=== PATIENT | female | born 1955 | race Caucasian/White ===

== ENCOUNTER 2016-08-19 19:51 | Emergency (ER) | payer MEDICARE, BC ==
[2016-08-19] MEDS ORDERED: Morphine INJ* 4 MG/ML 1 ML SYRINGE IM ONE ×2 (21:11→23:42)
--- NOTE | 2016-08-19 21:52 | RAD ---
Indication: Fall, neck injury. CT of the cervical spine was obtained in the axial plane. Sagittal and coronal reconstructed images were obtained. Skull base demonstrates no fracture. The C1 ring is intact. No fractures identified. At C2-C3 there is no disc protrusion. No central foraminal stenosis is noted. There is laminectomy of the C3 vertebra. Minimal degenerative disc disease at C3-C4 is noted with spondylytic ridge and broad-based protrusion. Anterior fusion of C4-C6 is noted with anterior plate and screws. Spondylitic ridge is noted. Left uncovertebral hypertrophy narrows the left foramen. At C6-C7 and C7-T1 no fracture is identified. No central foraminal stenosis is noted. IMPRESSION: NO FRACTURE IS NOTED. DEGENERATIVE DISC DISEASE AT C3-C4 WITH LAMINECTOMY OF C3. FUSION OF C4-C6 WITH ANTERIOR PLATE AND SCREWS..
--- NOTE | 2016-08-19 22:06 | RAD ---
Indication: Fall, left hip pain. 2 views of left hip and an AP view the pelvis demonstrates no fracture. No other bone or joint abnormality is identified. IMPRESSION: No fracture of the left hip is noted.
[2016-08-20 00:24] VITALS: BP 140/79
--- NOTE | 2016-08-20 10:21 | ED ---
Rebekah Bernal Rebecca, scribed for Dara Mcclure MD on 08/19/16 at 2045 . Complex/Multi-Sys Presentation - HPI Summary HPI Summary: Pt is a 61 y/o F accompanied by her daughter who presents to ED c/o body aching. Reports pain in the L hip with posterior radiation and neck pain. Pain began 2 days ago and has been constant since onset, currently severe, ranked 10/ 10. Sx aggravated by movement and sitting, alleviated by nothing. Additionally c /o generalized weakness and decreased appetite. Reports a mechanical fall 2 weeks ago after which she was evaluated by [facility], having her R ankle examined by XR which revealed no fracture. PMHx lupus and chronic pain for which she takes oxycodone (5 mg every 8 hours) and morphine (20 mg BID). Last took morphine this morning and oxycodone this afternoon. Typically uses a walker which she can still use, though she reports some difficulty walking recently. Daughter confirms she can be her ride home. - History Of Current Complaint Chief Complaint: EDGeneral Time Seen by Provider: 08/19/16 20:30 Hx Obtained From: Patient, Family/[employer] - daughter Onset/Duration: Lasting Days - 2 days, Still Present Timing: Constant Severity Currently: Severe - 10/10 Severity Initially: Moderate Location: Pain At: - Neck and L hip, Radiates To: - L Hip pain and posterior radiation Character: Dull Aggravating Factor(s): Movement, sitting Alleviating Factor(s): Nothing Associated Signs And Symptoms: Positive: Weakness - Generalized weakness, Decreased Oral Intake - Decreased appetite - Allergies/Home Medications Allergies/Adverse Reactions: Allergies Allergy/AdvReac Type Severity Reaction Status Date / Time Bee Venom Allergy Severe Anaphylatic Verified 12/09/14 08:54 Shock PMH/Surg Hx/FS Hx/Imm Hx Previously Healthy: No Endocrine/Hematology History: Reports: Hx Systemic Lupus Erythematosus, Hx Anemia Denies: Hx Diabetes Cardiovascular History: Reports: Hx Coronary Artery Disease - STENTS X3 2012, Hx Hypertension Denies: Hx Congestive Heart Failure, Hx Pacemaker/ICD, Other Cardiovascular Problems/Disorders Respiratory History: Reports: Hx Pneumonia Denies: Other Respiratory Problems/Disorders GI History: Reports: Hx Gastroesophageal Reflux Disease History: Denies: Hx Renal Disease Musculoskeletal History: Reports: Hx Arthritis - lupus, Hx Osteoporosis, Other Musculoskeletal History - generalized weakness Sensory History: Reports: Hx Contacts or Glasses Denies: Hx Hearing Aid Opthamlomology History: Reports: Hx Contacts or Glasses Neurological History: Reports: Hx Headaches, Other Neuro Impairments/Disorders - SYSTEMIC LUPUS Psychiatric History: Reports: Hx Anxiety, Hx Depression Denies: Hx Panic Disorder - Surgical History Surgery Procedure, Year, and Place: 3 cardiac stents 10/05/11 @ [facility] [place] { PROMUS ELEMENT PLUS- DRUG [employer] -[email or web address] MRI CONDITIONAL 5 UP TO 3T}; tonsillectomy 1963;c section 83;neck spinal fusion 09/18/08;colon polyp removal;polyp in throat removed-pt unsure of datetubal ligation 1996 Hx Anesthesia Reactions: No Infectious Disease History: No Infectious Disease History: Denies: Traveled Outside the [place] in Last 30 Days - Family History Known Family History: Positive: Other - [place] - Social History Alcohol Use: None Substance Use Type: Reports: None Substance Use Comment - Amount & Last Used: She states she no longer smoke Marijuana Hx Tobacco Use: Yes Smoking Status (MU): Current Every Day Smoker Type: Cigarettes Amount Used/How Often: 1/2 PPD Length of Time of Smoking/Using Tobacco: 40 YRS Have You Smoked in the Last Year: Yes Review of Systems Positive: Other - Generalized weakness Cardiovascular: Negative Respiratory: Negative Positive: Other - Decreased appetite Genitourinary: Negative Positive: Arthralgia - L hip pain with posterior radiation and neck pain Negative: Headache, Paresthesia, Numbness Psychological: Normal All Other Systems Reviewed And Are Negative: Yes Physical Exam Triage Information Reviewed: Yes Vital Signs On Initial Exam: Initial Vitals Temp Pulse Resp BP Pulse Ox 97.4 F 71 18 129/75 96 08/19/16 19:51 08/19/16 19:51 08/19/16 19:51 08/19/16 19:51 08/19/16 19:51 Vital Signs Reviewed: Yes Appearance: Positive: Well-Appearing, Well-Nourished, Pain Distress Skin: Positive: Warm, Skin Color Reflects Adequate Perfusion, Other - No rashes ; bruising dorsum right foot at 4th 5th MT Head/Face: Positive: Normal Head/Face Inspection Eyes: Positive: Conjunctiva Clear ENT: Positive: Normal ENT inspection Neck: Positive: Tenderness @ - Right trapezius; NO spinal tenderness in the neck , Other: - Surgical scar Respiratory/Lung Sounds: Positive: Clear to Auscultation, Breath Sounds Present , Other - No repisratory distress Cardiovascular: Positive: RRR, Pulses are Symmetrical in both Upper and Lower Extremities, Other - Brisk capillary refill Abdomen Description: Positive: Nontender, No Organomegaly, Soft. Negative: Distended, Guarding, Splenomegaly Bowel Sounds: Positive: Present Musculoskeletal: Positive: Strength/ROM Intact, Other - Tenderness in the L lateral hip with no rash, able to lift the leg with FROM, distal pulses and sensation intact.. Negative: Edema Left, Edema Right Neurological: Positive: Sensory/Motor Intact, Alert, Oriented to Person Place, Time. Negative: Facial Droop, Focal Deficit @, Slurred Speech Psychiatric: Positive: Normal - [place] Coma Scale Coma Scale Total: 15 Diagnostics - Vital Signs Vital Signs Temp Pulse Resp BP Pulse Ox 08/19/16 20:34 98.7 F 72 14 107/64 98 08/19/16 19:51 97.4 F 71 18 129/75 96 - Laboratory Lab Statement: Any lab studies that have been ordered have been reviewed, and results considered in the medical decision making process. - Radiology L Hip XR Xray Interpretation: No Acute Changes Radiology Interpretation Completed By: Radiologist - CT C-Spine CT CT Interpretation: No Acute Changes - NO FRACTURE IS NOTED. DEGENERATIVE DISC DISEASE AT C3-C4 WITH LAMINECTOMY OF C3. FUSION OF C4-C6 WITH ANTERIOR PLATE AND SCREWS.. CT Interpretation Completed By: Radiologist Re-Evaluation - Re-Evaluation First Eval Re-Evaluation Time: 23:38 Change: Improved Comment: Discussed CT and XR results with the pt in extensive detail. Pt reported improved pain after morphine administration. Discussed the possibility of shingles with the pt and that the pain may be present multiple days prior to onset of rash. Requests another dose of morphine. Confirms she should be able to ambulate out of the ED. Complex Multi-Symp Course/Dx Assessment/Plan: Pt is a 61 y/o F accompanied by her daughter who presents to ED c/o severe neck pain and L hip pain with posterior radiation for the last 2 days. Sx aggravated by movement and sitting, alleviated by nothing. Additionally c/o generalized weakness and decreased appetite. Typically uses a walker. Reports a mechanical fall 2 weeks ago after which she was evaluated by [facility], having her R ankle examined by XR which revealed no fracture. PMHx lupus and chronic pain for which she takes oxycodone (5 mg every 8 hours) and morphine (20 mg BID). Last took morphine this morning and oxycodone this afternoon. C-Spine CT and L Hip XR reveal no acute findings. Pt will be D/C to home with Dx of hip pain. She understands and agrees. - Diagnoses Provider Diagnoses: Hip pain, Cervical strain, acute Discharge - Discharge Plan Condition: Stable Disposition: HOME Patient Education Materials: Hip Pain (ED) Referrals: Cesar Kay MD [Primary Care Provider] - 3 Days Additional Instructions: Dr. Mcclure recommends that you check the hip area daily for possible rash, which might indicate shingles. If the rash develops, seek medical attention immediately. You were given morphine 8mg injectable twice while in the ER. You may continue your oral pain medication as directed. The CT of your cervical spine did not show any fracture or new abnormalities. The hip and pelvis xray did not show any fracture. RETURN TO EMERGENCY DEPARTMENT FOR ANY NEW OR WORSENING SYMPTOMS. The documentation as recorded by the Rebekah zamarripa Rebecca accurately reflects the service I personally performed and the decisions made by , Dara Mcclure MD.
== END 2016-08-20 00:15 | disposition home or self-care (01) ==
LOC: ED 19:51
DX: M25.552 Pain in left hip (principal); S16.1XXA Strain of muscle, fascia and tendon at neck level, initial encounter; W19.XXXA Unspecified fall, initial encounter; Y93.9 Activity, unspecified; Y92.9 Unspecified place or not applicable; R53.1 Weakness; M32.9 Systemic lupus erythematosus, unspecified; I25.10 Atherosclerotic heart disease of native coronary artery without angina pectoris; I10 Essential (primary) hypertension; Z95.5 Presence of coronary angioplasty implant and graft; K21.9 Gastro-esophageal reflux disease without esophagitis; F41.9 Anxiety disorder, unspecified; F32.9 Major depressive disorder, single episode, unspecified; Z91.030 Bee allergy status; F17.210 Nicotine dependence, cigarettes, uncomplicated
CPT/HCPCS: 72125; 96372; 99282; J2270

== ENCOUNTER → 2018-10-19 | Day surgery (SDC) | payer MEDICARE, BC ==
[~2018-10-19] MED LIST: Clopidogrel TAB* 75 MG ONE; Flumazenil* 0.1 MG/ML 5 ML MDV ONE; HYDROmorphone INJ1* 1 MG/ML SYRINGE ONE; Heparin 2 UNITS/ML IVPREMIX* 3,000 UNIT/1,500 ML BAG IV ONE; Heparin(*) 1000 UNIT/ML 10 ML VIAL CATH LAB IV ONE; Iohexol 350 (CONTRAST) 200 ML MDV IV ONE; Lidocaine 1% INJ* 10 MG/ML 30 ML SDV ONE; Midazolam* 1 MG/ML 5 ML VIAL (5 MG) ONE; Naloxone* 0.4 MG/ML 1 ML VIAL ONE; ceFAZolin 1 GM* X ONE DOSE (AddVan) IVPB; fentaNYL* 50 MCG/ML 2 ML VIAL (100 MCG VIAL) ONE; oxyCODONE TAB* 5 MG TAB PO ONE
[2018-10-19 08:19] LABS: Activated Partial Thrombo Time 29.7 seconds (26.0-38.0); INR 0.84 (0.82-1.09)
[2018-10-19 08:29] LABS: Albumin 3.6 g/dL (3.2-5.2); Albumin/Globulin Ratio 1.6 (1-3); BUN/Creatinine Ratio 13.4 (8-20); Calcium 8.9 mg/dL (8.6-10.3); EGFR African American 85.8 (>60); EGFR Non-African American 70.9 (>60); Globulin 2.3 g/dL (2-4); Total Bilirubin 0.3 mg/dL (0.2-1.0); Total Protein 5.9 g/dL (6.4-8.9)
--- NOTE | 2018-10-19 17:39 | PN ---
Progress Note - Progress Note Date of Service: 10/19/18 SOAP: Subjective: Low back pain at baseline. Denies pain in the abdomen/pelvis and legs. No left groin pain. Notably she states her usual left leg pain is gone. Objective: Selected Entries 10/19/18 17:07 Heart Rate 65 Respiratory 21 Rate Blood Pressure 136/70 (mmHg) Blood Pressure 87 Mean O2 Sat by Pulse 88 Oximetry NAD, AAO x 3 Left groin and medial upper thigh is ecchymotic, but soft to touch. Minimally tender to palpation. Dressing with small amount of dry appearing blood. 2+ pulses at left HOUSE MANAGER, pop and DPA Motor function grossly intact in BLE Sensation to light touch intact in BLE No discoloration of either lower leg or foot Assessment: 63 YOF s/p pelvic and BLE arteriography, revascularization and stenting of occluded left common iliac artery, balloon angioplasty of left HELENA and EIA followed by attempted percutaneous closure of left HOUSE MANAGER with Mynx closure device. Mynx closure device deployed incompletely so pressure held at arteriotomy x 40 minutes and groin managed with 5+ hours bedrest. Plan: 1. Plavix 150 mg PO now loading dose to be followed by Plavix 75 mg PO daily until IR clinic visit. 2. Continue baby aspirin 81 mg PO daily for life. 3. IR clinic nurse will call 10/22/18 and routine Interventional Radiology office visit and TRACIE will be in ~1 month. 4. Patient further encouraged to quit smoking.
[2018-10-19 17:44] VITALS: BP 147/64
== END | disposition home or self-care (01) ==
LOC: CHICATH 06:51
PROVIDERS: ATTEND Radiology Diagnostic Radiology
DX: I70.223 Atherosclerosis of native arteries of extremities with rest pain, bilateral legs (principal); I70.213 Atherosclerosis of native arteries of extremities with intermittent claudication, bilateral legs; I25.10 Atherosclerotic heart disease of native coronary artery without angina pectoris; M32.9 Systemic lupus erythematosus, unspecified; G62.9 Polyneuropathy, unspecified; F17.210 Nicotine dependence, cigarettes, uncomplicated; Z79.899 Other long term (current) drug therapy; M47.12 Other spondylosis with myelopathy, cervical region
CPT/HCPCS: 36415; 37252; 75736; 76937; 80053; 85347; 85610; 85730; 99156; 99157; A9270-GY; C1725; C1753; C1760; C1769; C1874; C1887; J0690; J1170; J1644; J2250; J2310; J3010

== ENCOUNTER 2018-10-23 06:33 | Emergency (ER) | payer MEDICARE, BC ==
--- OUTSIDE RECORDS SUMMARY | 2018-10-23 06:43 | XMS REPORT | Continuity of Care Document ---
:1955 External Reference #:[id number] Author Name Zi Greco DO, MPH Address [facility], [address] [place] [address] Care Team Providers Name Role Phone Jefe Carter M.D. - Medical Care Team Information Shirt Operator [phone] Oncology Cesar Kya M.D. - Family Medicine Care Team Information Shirt Operator [phone] Problems Description No Information Available Social History Type Date Description Comments Sex Unknown Cigarette Use Current Cigarette Smoker 1/2 Pack Daily ETOH Use Rarely consumes alcohol Tobacco Use Start: Unknown Patient is a current smoker, smokes every day Smoking Status Reviewed: 10/10/18 Patient is a current smoker, smokes every day Allergies, Adverse Reactions, Alerts Active Allergies Reaction Severity Comments Date Bee Sting 10/29/2014 Medications Active Medications SIG Qnty Indications Ordering Date Provider Oxycontin take one tablet 60tabs Zi Greco, 03/20/2017 15mg Tab ER 12H by mouth every DO, MPH Abuse-Det 12 hours as directed chronic pain. Oxycodone HCL si by mouth 90tabs Zi Greco, 11/20/2014 5mg Tablets every 8 hours DO, MPH as directed chronic pain patient Metoprolol Tartrate 1 by mouth Unknown 25mg every day as Tablets directed Effexor XR 1 cap by mouth Unknown 75mg Caps ER 24HR every day as directed Hydroxychloroquine 1 by mouth Unknown Sulfate twice daily 200mg Tablets Cymbalta si by mouth Unknown 30mg Caps DR Part daily as directed chronic pain patient Prednisone si by mouth Unknown 2.5mg Tablets daily Nitrostat 1 tab every 5 Unknown 0.4mg Tablets Sub minutes as need, MDD3 Aspirin Adult Low Dose 1 by mouth Unknown 81mg daily Tablets DR Lipitor 1 by mouth at Unknown 80mg Tablets bedtime Boost i can 3 times a Unknown Liquid day [id number] once a month Unknown Injection Lorazepam si by mouth Unknown 1mg Tablets twice daily Trazodone HCL si by mouth Unknown 150mg Tablets every night at bedtime as directed Potassium Chloride ER 1 by mouth Unknown 10Meq daily Capsules ER Lasix 1 by mouth in Unknown 20mg Tablets the morning Omeprazole si by mouth Unknown 40mg Capsules DR twice daily Mycophenolate Mofetil 1 by mouth Unknown 500mg twice daily Tablets Immunizations Description No Information Available Vital Signs Date Vital Result Comment 10/10/2018 1:36pm BP Systolic 124 mmHg BP Diastolic 76 mmHg Heart Rate 74 /min Respiratory Rate 20 /min Height 65 inches 5'5" Weight 123.00 lb Pain Level 8 Pain at this time. Pain Level With Medicine 7 on average with meds Pain Level Without Medicine 9 without meds Pain Level After Procedure 5 BP Systolic Recheck 128 mmHg Pulse: 86 BP Diastolic Recheck 82 mmHg Pulse: 86 BMI (Body Mass Index) 20.5 kg/m2 09/10/2018 1:44pm BP Systolic 128 mmHg BP Diastolic 84 mmHg Heart Rate 86 /min Respiratory Rate 20 /min Height 65 inches 5'5" Weight 119.00 lb Pain Level 6 Pain at this time. Pain Level With Medicine 6 on average with meds Pain Level Without Medicine 9 without meds BMI (Body Mass Index) 19.8 kg/m2 Results Description No Information Available Procedures Date Code Description Status 08/09/2018 76943 Therapeutic, Prophylactic Or Diagnostic Injection Subq/Im Completed 08/09/2018 93775 Injection For Nerve Block, Greater Occipital Nerve Completed 08/09/201841989 Injection, Single Or Mutiple Trigger Points One Or Two Completed Muscles 08/09/2018 Injection, Tendon Origin/Insertion Completed 08/09/2018 Injection, Tendon Origin/Insertion Completed 08/09/201826129 Inject Tendon/Ligament Completed 08/09/2018 16334 Inject Tendon/Ligament Completed 08/09/201855469 Inject Tendon/Ligament Completed 07/12/2018 39988 Therapeutic, Prophylactic Or Diagnostic Injection Subq/Im Completed 05/14/2018 54776 Therapeutic, Prophylactic Or Diagnostic Injection Subq/Im Completed Medical Devices Description No Information Available Encounters Type Date Location Provider Dx Diagnosis Office Visit 09/10/2018 Main Office as Zi Greco G89.28 Other chronic 2:00p Of 03/16/13 DO MPH postprocedural pain M25.551 Pain in right hip Z79.891 bar assistant (current) use of opiate analgesic Office Visit 08/09/2018 2:00p Main Office Zi Greco G89.28 Other chronic as Of 03/16/13 DO, MPH postprocedural pain M25.551 Pain in right hip M65.88 Other synovitis and tenosynovitis, other site M79.12 Myalgia of auxiliary muscles, head and neck M54.81 Occipital neuralgia R53.83 Other fatigue Z79.891 bar assistant (current) use of opiate analgesic Office Visit 07/12/2018 2:30p Main Office Zi Greco G89.28 Other chronic as Of 03/16/13 DO, MPH postprocedural pain M25.551 Pain in right hip R53.83 Other fatigue M79.18 Myalgia, other site Z79.891 bar assistant (current) use of opiate analgesic Office Visit 06/12/2018 2:30p Main Office Zi Greco G89.28 Other chronic as Of 03/16/13 DO, MPH postprocedural pain M25.551 Pain in right hip Z79.891 bar assistant (current) use of opiate analgesic Office Visit 05/14/2018 2:00p Main Office Zi Greco G89.28 Other chronic as Of 03/16/13 DO, MPH postprocedural pain M25.551 Pain in right hip R53.83 Other fatigue Z79.891 nursing home (current) use of opiate analgesic Assessments Date Code Description Provider 10/10/2018 G89.28 Other chronic postprocedural pain Zi Greco DO MPH 10/10/2018 M54.2 Cervicalgia Greco, Zi, DO, MPH 10/10/2018 M65.88 Other synovitis and tenosynovitis, other Greco, Zi, DO , MPH site 10/10/2018 M46.02 Spinal enthesopathy, cervical region Greco, Zi, DO, MPH 10/10/2018 M79.12 Myalgia of auxiliary muscles, head and neck Greco, Zi, DO, MPH 10/10/2018 R53.83 Other fatigue Greco, Zi, DO, MPH 10/10/2018 Z79.891 nursing home (current) use of opiate analgesic Greco, Zi , DO, MPH 09/10/2018 G89.28 Other chronic postprocedural pain Greco, Zi, DO, MPH 09/10/2018 M25.551 Pain in right hip Greco, Zi, DO, MPH 09/10/2018 Z79.891 bar assistant (current) use of opiate analgesic Greco, Zi , DO, MPH 08/09/2018 G89.28 Other chronic postprocedural pain Greco, Zi, DO, MPH 08/09/2018 M25.551 Pain in right hip Greco, Zi, DO, MPH 08/09/2018 M65.88 Other synovitis and tenosynovitis, other Greco, Zi, DO , MPH site 08/09/2018 M79.12 Myalgia of auxiliary muscles, head and neck Greco, Zi, DO, MPH 08/09/2018 M54.81 Occipital neuralgia Greco, Zi, DO, MPH 08/09/2018 R53.83 Other fatigue Greco, Zi, DO, MPH 08/09/2018 Z79.891 bar assistant (current) use of opiate analgesic Greco, Zi , DO, MPH 07/12/2018 G89.28 Other chronic postprocedural pain Greco, Zi, DO, MPH 07/12/2018 M25.551 Pain in right hip Greco, Zi, DO, MPH 07/12/2018 R53.83 Other fatigue Greco, Zi, DO, MPH 07/12/2018 M79.18 Myalgia, other site Greco, Zi, DO, MPH 07/12/2018 Z79.891 nursing home (current) use of opiate analgesic Zi Greco DO, MPH 06/12/2018 G89.28 Other chronic postprocedural pain Zi Greco DO MPH 06/12/2018 M25.551 Pain in right hip Zi Greco DO MPH 06/12/2018 Z79.891 bar assistant (current) use of opiate analgesic Zi Greco DO, MPH 05/14/2018 G89.28 Other chronic postprocedural pain Zi Greco DO MPH 05/14/2018 M25.551 Pain in right hip Zi Greco DO MPH 05/14/2018 R53.83 Other fatigue Zi Greco DO MPH 05/14/2018 Z79.891 nursing home (current) use of opiate analgesic Zi Greco DO MPH Plan of Treatment Future Appointment(s):11/08/2018 2:45 pm - Zi Greco DO MPH at Main Office as Of 03/16/1407 - Zi Greco DO, MPHG89.28 Other chronic postprocedural painComments:Chronic. Symptoms and complaints discussed and reviewed today. No significant changes in physical findings. Continue current medical pain management.M54.2 CervicalgiaComments:Chronic. Symptoms and complaints discussed and reviewed today. Physical findings warrant injection therapy. Continue current medical pain management. Injection therapy performed today. Informed consentgiven/refusal reviewed. See procedure sheet. Injection therapy will lower this patient's pain, increase ROM improve functionality and mitigate the need for increased medication.M65.88 Other synovitis and tenosynovitis, other siteComments:Chronic. Symptoms and complaints discussed and reviewed today. Physical findings reviewed and warrant intervention. Continue current medical pain management. Injection therapy today - tendon sheath. Informed consent given/refusal reviewed. See procedure sheet.M46.02 Spinal enthesopathy, cervical regionComments:Chronic. Symptoms and complaints discussed and reviewed today. Physical findings reviewed and warrant intervention. Patient is stable and comfortable with current medical therapy. Injection therapy today.Tendon I/O injections performed. See procedure sheet.M79.12 Myalgia of auxiliary muscles, head and neckComments:Symptoms and complaints discussed and reviewed today. Physical findings reviewed and warrant intervention. Injection therapy today - Trigger Point injections. Informed consent given/refusal reviewed. See procedure sheet.R53.83 Other fatigueComments :Symptoms and complaints discussed and reviewed today. No significant changes in physical findings. Continue current medical pain management. B12 injection administered after patient evaluated. 1ml IM for fatigue. (See Consent for injection-B12 document for lot number and expiration date.)Z79.891 nursing home (current) use of opiate analgesicNew Labs:Urine Drug Screen, Ordered: 10/10/18Comments:Urine drug screen sample taken today to monitor opiate use and to monitor use of illicit substances.Will discuss results at next appointment.The following tests were ordered:6 AM, AMPH, MARY, ZEN, BUP, CARIS , COCM, COT, ETG, FENT, MCSHSG, OPI, OXY, PCP, TAPEN, XTSY, ZOLP. A urine drug test (UDT) was ordered for this patient and collected on site today. Creatinine has been ordered as well for specimen validity, not for kidney function. Preliminary UDT results are not final and should not be used to determine patient care or plan of treatment. Initially a qualitative immunoassay screen will be done. Any inconsistent or positive findings will be further tested with a more comprehensive quantitative confirmation LCMS study. It is part of the treatment process of prescribing controlled substances and is considered standard of care.AllComments:Continue current medical pain management ; injection therapy, osteopathic manipulation, PT / modalities, and consults as needed to manage chronic pain.Non - opioid pain management discussed and optionsdiscussed.Side effects discussed; anticipatory guidance given. Patient clearly understand and agree with all medical treatments and suggestions. All medicines prescribed are adequate and appropriate for this patient's complaint of pain, medical history, physical, and personal goals.Goals of Treatment are to provide adequate and appropriate multidisciplinary medical pain management to increase/ maintain patient's quality of life and functionality while maintaining satisfactory side effect profile andminimizing shelter end-organ damage. Importance of regular nutrition throughout the day discussed.Activity as toleratedContinue with PCP Functional Status Description No Information Available Mental Status Description No Information Available Referrals Description No Information Available
[2018-10-23] MEDS ORDERED: NS 0.9% 1000 ML** 1,000 ML IV ONE (07:02)
--- NOTE | 2018-10-23 07:22 | ED ---
Skin Complaint - HPI Summary HPI Summary: This patient is a 63 year old F presenting to [facility] accompanied by a female extrusion press operator with a chief complaint of left groin swelling since yesterday. Pt states she had a stent placed in her left groin 4 days ago. The patient rates the pain 7/10 in severity. Symptoms aggravated by nothing. Symptoms alleviated by nothing. Pt reports pain to palpation. Pt denies fever, chills, numbness and tingling in legs. PMHx of Lupus, COPD, arthritis. FHx of cancer. Pt is on blood thinner medication. Pt is a smoker, but does not drink. - History of Current Complaint Chief Complaint: EDGeneral Time Seen by Provider: 10/23/18 06:57 Stated Complaint: LUMP ON GROIN AFTER SURGERY PER PT Hx Obtained From: Patient Hx Last Menstrual Period: 28 years Onset/Duration: Started Days Ago - 1, Still Present Timing: Constant Onset Severity: Moderate Current Severity: Moderate Pain Intensity: 7 Pain Scale Used: 0-10 Numeric Skin Location: Other: - left groin Character: Swelling Aggravating Symptom(s): Nothing Alleviating Symptom(s): Nothing - Additional Pertinent History Primary Care Physician: [id number] - Allergy/Home Medications Allergies/Adverse Reactions: Allergies Allergy/AdvReac Type Severity Reaction Status Date / Time bee venom protein (honey bee) Allergy Severe Anaphylatic Verified 10/23/18 06:58 Shock PMH/Surg Hx/FS Hx/Imm Hx Previously Healthy: No Endocrine/Hematology History: Reports: Hx Systemic Lupus Erythematosus, Hx Anemia Denies: Hx Diabetes Cardiovascular History: Reports: Hx Angina, Hx Coronary Artery Disease, Hx Hypercholesterolemia, Hx Hypertension, Hx Myocardial Infarction Denies: Hx Congestive Heart Failure, Hx Pacemaker/ICD, Hx Valvular Heart Disease, Other Cardiovascular Problems/Disorders Respiratory History: Reports: Hx Chronic Obstructive Pulmonary Disease (COPD), Hx Pneumonia Denies: Hx Asthma, Other Respiratory Problems/Disorders GI History: Reports: Hx Gastroesophageal Reflux Disease, Other GI Disorders - pain in "stomach area" History: Denies: Hx Chronic Renal Failure, Hx Renal Disease Musculoskeletal History: Reports: Hx Arthritis - lupus, Hx Rheumatoid Arthritis - lupus, Hx Osteoporosis, Other Musculoskeletal History - generalized weakness Sensory History: Denies: Hx Contacts or Glasses, Hx Hearing Aid Opthamlomology History: Denies: Hx Contacts or Glasses Neurological History: Reports: Hx Headaches, Other Neuro Impairments/Disorders - SYSTEMIC LUPUS Psychiatric History: Reports: Hx Anxiety, Hx Depression Denies: Hx Panic Disorder - Surgical History Surgical History: Yes Surgery Procedure, Year, and Place: 3 cardiac stents 10/05/11 @ [facility] [place] { PROMUS ELEMENT PLUS- DRUG ELUTING -[facility] MRI CONDITIONAL 5 UP TO 3T}; tonsillectomy 1964;c section 83;neck spinal fusion 09/18/08;colon polyp removal;polyp in throat removed-pt unsure of datetubal ligation 1996. CATARACT SURGEY 03/2017 Hx Anesthesia Reactions: No Infectious Disease History: No Infectious Disease History: Denies: Traveled Outside the [place] in Last 30 Days - Family History Known Family History: Positive: Other - [place] - Social History Alcohol Use: None Substance Use Type: Reports: Marijuana Substance Use Comment - Amount & Last Used: occassional, used "a couple of weeks ago" Hx Tobacco Use: Yes Smoking Status (MU): Current Every Day Smoker Type: Cigarettes Amount Used/How Often: 1/2 PPD Length of Time of Smoking/Using Tobacco: 40 YRS Have You Smoked in the Last Year: Yes Review of Systems Negative: Fever, Chills Musculoskeletal: Other - positive - left groin swelling, pain to palpation in area Negative: Numbness All Other Systems Reviewed And Are Negative: Yes Physical Exam - Summary Physical Exam Summary: Constitutional: Well-developed, Well-nourished, Alert. (-) Distressed Skin: Warm, Dry HENT: Normocephalic; Atraumatic Eyes: Conjunctiva normal Neck: Musculoskeletal ROM normal neck. (-) JVD, (-) Stridor, (-) Nuchal rigidity Cardio: Rhythm regular, rate normal, Heart sounds normal; Intact distal pulses; Radial pulses are 2+ and symmetric. (-) Murmur Pulmonary/Chest wall: Effort normal. (-) Respiratory distress, (-) Wheezes, (-) Rales Abd: Soft, (-) tenderness, (-) Distension, (-) Guarding, (-) Rebound Musculoskeletal: 20x10 cm ecchymosis to left inner thigh, nontender 1x2cm mass in left groin Lymph: (-) Cervical adenopathy Neuro: Alert, Oriented x3 Psych: Mood and affect Normal Triage Information Reviewed: Yes Vital Signs On Initial Exam: Initial Vitals Temp Pulse Resp BP Pulse Ox 97.6 F 123 18 111/78 93 10/23/18 06:35 10/23/18 06:35 10/23/18 06:35 10/23/18 06:35 10/23/18 06:35 Vital Signs Reviewed: Yes Diagnostics - Vital Signs Vital Signs Temp Pulse Resp BP Pulse Ox 10/23/18 06:35 97.6 F 123 18 111/78 93 - Laboratory Result Diagrams: 10/23/18 07:19 10/23/18 07:19 Lab Statement: Any lab studies that have been ordered have been reviewed, and results considered in the medical decision making process. Course/Dx - Course Course Of Treatment: Patient is s/p L common iliac artery stenting by Dr. Jackson 5 days ago p/w bump to L groin. PE with 2+ DP pulse in the left leg, non pulsatile small mass in the left groin likely consistent with postoperative hematoma. Large area of ecchymosis which is likely postoperative. Check a CBC , was discussed with Dr. Jackson, plan for discharge to home - Diagnoses Provider Diagnoses: Hematoma, Post-operative complication - Physician Notifications Discussed Care Of Patient With: Tanner Jackson Time Discussed With Above Provider: 08:08 - Dr. Jackson will see the pt. Discharge ED - Sign-Out/Discharge Documenting (check all that apply): Patient Departure - discharge Patient Received Moderate/Deep Sedation with Procedure: No - Discharge Plan Condition: Stable Disposition: HOME Patient Education Materials: Hematoma (ED) Referrals: Cesar Kay MD [Primary Care Provider] - 2 Days Additional Instructions: You were seen in the emergency department for left groin mass. This is likely a common postoperative change with a hematoma. Your ultrasound showed normal postoperative changes. Dr. Jackson saw you in the ED and felt that you can go home. Please return to the ED for worsening pain, continued swelling, or if you 're concerned. Follow up with your primary care provider within 2-3 days. - Billing Disposition and Condition Condition: STABLE Disposition: Home - Attestation Statements Document Initiated by Scribe: Yes Documenting Scribe: Bill Calhoun Provider For Whom Javi is Documenting (Include Credential): Dr. Tiffanie Torres MD Scribe Attestation: I, Bill Calhoun, scribed for Dr. Tiffanie Torres MD on 10/23/18 at 1934. Scribe Documentation Reviewed: Yes Provider Attestation: The documentation as recorded by the scribe, Bill Calhoun accurately reflects the service I personally performed and the decisions made by me, Dr. Tiffanie Torres MD Status of Scribe Document: Viewed
[2018-10-23 07:25] LABS: ABS Lymphocytes 0.6 10^3/ul (1.0-4.8); ABS Monocytes 0.6 10^3/ul (0-0.8); ABS Neutrophils 7.3 10^3/ul (1.5-7.7); Eosinophil % 0.1 %; Hematocrit 35 % (35-47); Hemoglobin 11.7 g/dL (12.0-16.0); Mean Corpuscular HGB Conc 33 g/dL (31-36); Mean Corpuscular Hemoglobin 30 pg (27-31); Mean Corpuscular Volume 89 fL (80-97); Mean Platelet Volume 7.9 fL (7.4-10.4); Platelet Count 248 10^3/uL (150-450); Red Blood Count 3.93 10^6 /uL (3.70-4.87); Red Cell Distribution Width 15 % (10-15); White Blood Count 8.5 10^3/uL (3.5-10.8)
[2018-10-23 07:32] LABS: INR 0.97 (0.82-1.09)
[2018-10-23 07:42] LABS: Albumin 3.8 g/dL (3.2-5.2); Albumin/Globulin Ratio 1.4 (1-3); BUN/Creatinine Ratio 7.4 (8-20); Calcium 9.3 mg/dL (8.6-10.3); EGFR Non-African American 71.9 (>60); Globulin 2.7 g/dL (2-4); Potassium 4.2 mmol/L (3.5-5.0); Total Bilirubin 0.6 mg/dL (0.2-1.0); Total Protein 6.5 g/dL (6.4-8.9)
--- NOTE | 2018-10-23 08:33 | CONSULT ---
Consult Consult: Date of Service: 10/23/18 Reason for consultation: Clinical concern for left common femoral arteriotomy hematoma. Requesting physician: Dr. Torres (ED) (Focused) HPI: Leslie is a 63-year-old woman status post revascularization and stenting of the left common iliac artery on 10/19/2018 presenting to the emergency department with a small painful "lump" at her left groin. She is accompanied by her daughter Dat. Since the procedure 4 days earlier the patient has had tenderness at the left groin but no palpable masses. His morning she noticed a nodule beneath the skin that was tender to touch. She has had ecchymosis at the groin in upper medial left thigh since the procedure but this is painless. The patient denies any other symptoms and continues to enjoy resolution of her left leg claudication and rest pain. She says her left leg otherwise "feels really good". She denies shortness of breath, chest pain or dizziness. Physical examination: Selected Entries 10/23/18 10/23/18 06:35 07:29 Temperature 97.6 F Pulse Rate 96 Blood Pressure 102/69 (mmHg) Blood Pressure 80 Mean O2 Sat by Pulse 94 Oximetry NAD, AAO x 3 RRR CTAB Left groin is ecchymotic with ecchymoses extending into the medial upper left thigh. The ecchymotic portion is nontender. Immediately superior to the arteriotomy site in the left groin there is a <1 cm palpable nodule that is minimally tender to palpation. The groin is otherwise soft. 2+ pulses are readily palpable at the left common femoral artery, dorsalis pedis artery and popliteal artery There is not a loud bruit heard over the left groin The left foot is warm to touch. Labs: Laboratory Tests 10/05/11 11/08/11 11/22/17 18:30 21:26 15:45 WBC Hgb 11.3 L Hct 34 L PT 9.4 INR (Anticoag Therapy) APTT D-Dimer Quant (PE/DVT) < 200 POC Activ Clotting Time 05/23/18 06/19/18 10/19/18 15:20 14:54 07:50 WBC Hgb 13.0 13.0 Hct 41 39 PT INR (Anticoag Therapy) APTT 29.7 D-Dimer Quant (PE/DVT) POC Activ Clotting Time 10/19/18 10/23/18 10/23/18 11:46 07:19 07:19 WBC 8.5 Hgb 11.7 L Hct 35 PT INR (Anticoag Therapy) 0.97 APTT D-Dimer Quant (PE/DVT) POC Activ Clotting Time 231 Imaging: During the bedside consultation, the liaison planner was imaging the left groin and I was present during imaging. Corresponding to the palpable lump there is ill-defined echogenic and avascular material just superior to the left common femoral artery consistent with the percutaneous closure device material. There is no drainable hematoma. Patent flow as documented in the left common femoral artery. There is no pseudoaneurysm or arteriovenous fistula. Impression: 63-year-old woman postop day #4 status post revascularization and stenting of the left common iliac artery presenting to the emergency department with ecchymosis and a palpable nodule corresponding to the percutaneous Mynx closure device. There is no evidence of drainable hematoma or acute arterial access complication such as pseudoaneurysm or AVM. Plan: 1. Recommend discharge to home. 2. Continue post stenting antiplatelet therapy with Plavix 75 mg by mouth daily and aspirin 81 mg by mouth for life. 3. The patient was advised to continue her antacid therapy as she was taking before. 4. Continue with planned routine interventional radiology clinic visit and [facility] in early November 2018, approximately 1 month status post revascularization and stenting.
[2018-10-23 09:01] VITALS: BP 99/74
== END 2018-10-23 09:07 | disposition home or self-care (01) ==
LOC: ED 06:33
DX: L76.32 Postprocedural hematoma of skin and subcutaneous tissue following other procedure (principal); Z95.5 Presence of coronary angioplasty implant and graft; J44.9 Chronic obstructive pulmonary disease, unspecified; M32.9 Systemic lupus erythematosus, unspecified; M19.90 Unspecified osteoarthritis, unspecified site; D64.9 Anemia, unspecified; I25.10 Atherosclerotic heart disease of native coronary artery without angina pectoris; E78.00 Pure hypercholesterolemia, unspecified; I10 Essential (primary) hypertension; I25.2 Old myocardial infarction; K21.9 Gastro-esophageal reflux disease without esophagitis; F41.9 Anxiety disorder, unspecified; F32.9 Major depressive disorder, single episode, unspecified; F17.210 Nicotine dependence, cigarettes, uncomplicated; Z79.01 Long term (current) use of anticoagulants; Z79.82 Long term (current) use of aspirin; Z79.899 Other long term (current) drug therapy
CPT/HCPCS: 36415; 80053; 85025; 85610; 99282